=== PATIENT | male | born 1990 | race Two or more races ===

== ENCOUNTER 2021-01-29 11:05 | Emergency (ER) | payer MEDICAID ==
[~2021-01-29] VITALS: Ht 167.6 cm; Wt 68.2 kg
[2021-01-29 11:08] VITALS: BP 132/91
== END 2021-01-29 13:59 | disposition left against medical advice (07) ==
LOC: EMS 11:10
DX: F22 Delusional disorders (principal); Z53.21 Procedure and treatment not carried out due to patient leaving prior to being seen by health care provider